=== PATIENT | male | born 1990 | race Caucasian/White ===

== ENCOUNTER 2017-08-03 11:43 | Emergency (ER) | payer SELFPAY ==
[~2017-08-03] VITALS: Ht 175.3 cm; Wt 85.0 kg
[2017-08-03 11:45] VITALS: BP 172/106; PULSE 95; RESP 20; TEMP 99; O2SAT 96
[2017-08-03 11:51] VITALS: BP 153/95
--- NOTE | 2017-08-03 12:06 | PD ---
HPI Chief Complaint: Cold / Flu Symptoms Time Seen by Provider: 12:02 Travel History International Travel<30 days: No Contact w/Intl Traveler<30days: No Traveled to known affect area: No History of Present Illness HPI 27-year-old male presents to emergency department for evaluation of cough, chest congestion, sore throat worsening over the last week. Patient states it' s gotten to where he coughs to the point of almost vomiting. Subjective fever and chills. Cough is productive intermittently of a yellow mucus. Denies any other symptoms at this time. PFSH Past Medical History Medical History: Denies Significant Hx Social History Alcohol Use: No Tobacco Use: No Substance Use: No Allergies-Medications (Allergen,Severity, Reaction): Coded Allergies: mold (Verified Allergy, Severe, 08/03/17) Reported Meds & Prescriptions Reported Meds & Active Scripts Active Proair Hfa 8.5 GM Inh (Albuterol Sulfate) 90 Mcg/Act Aer 2 Puff INH Q4H PRN 108 mcg/actuation Medrol Dosepak (Methylprednisolone) 4 Mg Dspk 4 Mg PO DIRECTED Per Pharmacist direction Zithromax Z-Danyel (Azithromycin) 250 Mg Dspk 250 Mg PO DIRECTED 500 MG (2 tabs) day 1, then 1 tab days 2-5. Review of Systems Except as stated in HPI: all other systems reviewed are Neg Physical Exam Narrative GENERAL: Well-nourished, well-developed patient, in no acute distress SKIN: Focused skin assessment warm/dry. HEAD: Normocephalic. EYES: No scleral icterus. No injection or drainage. NECK: Supple, trachea midline. No JVD or lymphadenopathy. CARDIOVASCULAR: Elevated rate and rhythm without murmurs, gallops, or rubs. RESPIRATORY: Breath sounds diminished bases, scattered rhonchi equal bilaterally. No accessory muscle use. GASTROINTESTINAL: Abdomen soft, non-tender, nondistended. MUSCULOSKELETAL: No cyanosis, or edema. BACK: Nontender without obvious deformity. No CVA tenderness. Data Data Last Documented VS Vital Signs Date Time Temp Pulse Resp B/P (MAP) Pulse Ox O2 Delivery O2 Flow Rate FiO2 08/03/17 13:21 08/03/17 12:17 100 21 08/03/17 11:45 99.0 95 20 Room Air Orders Orders Chest, Pa & Lat (08/03/17 ) Dexamethasone Inj (Decadron Inj) (08/03/17 12:15) Albuterol-Ipratropium Neb (Duoneb Neb) (08/03/17 12:15) [facility] Medical Decision Making Medical Screen Exam Complete: Yes Emergency Medical Condition: Yes Medical Record Reviewed: Yes Differential Diagnosis Pneumonia versus influenza versus bronchitis versus common cold Narrative Course 27-year-old male presents to emergency department for evaluation. Patient appears without distress. He does have scattered rhonchi and diminished breath sounds in the bases. X-ray imaging is complete and shows Multilobular infiltrates. Patient will be started on oral antibiotics, oral steroids, and pro-air inhaler. He is encouraged to seek primary care evaluation in 1-2 days and to return immediately with any acute worsening of symptoms. Diagnosis Primary Impression: Pneumonia Qualified Codes: J18.9 - Pneumonia, unspecified organism Referrals: Primary Care Physician Patient Instructions: Community Acquired Pneumonia (ED), General Instructions Additional Instructions: Follow up with a primary care provider Humidified air may help to alleviate symptoms Return to ED with acute worsening of symptoms Med/Other Pt SpecificInfo: Prescription(s) given Scripts Albuterol 8.5 GM Inh (Proair Hfa 8.5 GM Inh) 90 Mcg/Act Aer 2 PUFF INH Q4H Y for SHORTNESS OF BREATH, #1 INHALER 0 Refills 108 mcg/actuation Prov: Zuleika Young 08/03/17 Methylprednisolone Dosepak (Medrol Dosepak) 4 Mg Dspk 4 MG PO DIRECTED, #1 DSPK 0 Refills Per Pharmacist direction Prov: Zuleika Young 08/03/17 Azithromycin (Zithromax Z-Danyel) 250 Mg Dspk 250 MG PO DIRECTED for Infection, #1 DSPK 0 Refills 500 MG (2 tabs) day 1, then 1 tab days 2-5. Prov: Zuleika Young 08/03/17 Disposition: 01 DISCHARGE HOME Condition: Stable Zuleika Young Aug 03, 2017 12:06
[2017-08-03] MEDS ORDERED: DEXAMETHASONE SOD PHOS 4 MG/ML VIAL IM ONE (12:15)
[2017-08-03] MEDS ORDERED: RESP: ALBUTEROL 2.5 MG/IPRATROPIUM 0.5 MG NEB (SCH) NEB ONE (12:15)
[2017-08-03 12:17] VITALS: O2SAT 100
--- NOTE | 2017-08-03 13:07 | RADRPT ---
EXAM DATE/TIME: 08/03/2017 13:00 [facility] COMPARISON: No previous studies available for comparison. INDICATIONS : Cough. MEDICAL HISTORY : None. SURGICAL HISTORY : None. ENCOUNTER: Initial ACUITY: 4 - 6 days PAIN SCORE: 0/10 LOCATION: Bilateral chest FINDINGS: PA and lateral views of the chest demonstrates bilateral patchy infiltrates. The cardiomediastinal c ontours are unremarkable. Osseous structures are intact. CONCLUSION: Multilobar infiltrates. Richie Wright MD on August 03, 2017 at 13:03 Board Certified Radiologist. This report was verified electronically.
[2017-08-03] MEDS ORDERED: ALBUAER3 INH (13:18)
[2017-08-03] MEDS ORDERED: ZITHTAB PO (13:18)
[2017-08-03] MEDS ORDERED: MEDR4PAK PO (13:18)
== END 2017-08-03 13:23 | disposition home or self-care (01) ==
LOC: NEPK 11:43
DX: J18.9 Pneumonia, unspecified organism (principal)
CPT/HCPCS: 71020; 94664; 96372; 99284; J1100